=== PATIENT | female | born 1985 | race Caucasian/White ===

== ENCOUNTER 2016-09-15 15:25 | Emergency (ER) | payer BC ==
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
[~2016-09-15 15:25] MED LIST: BIRTH CONTROL PILL PO; COMBIVENT INH14.7 GM INH; LORTAB 7.5-5001 TAB PO; MICROGESTIN FE1 EACH PO; OMEPRAZOLE40 M1 PO; PHENERGAN PO; PHENERGAN PR; PRILOSEC20 M1 PO; PROAIR HFA8.5 GM INH; PROTONIX PO; VICODIN 5/500 T1 TAB PO
== END 2016-09-15 16:33 | disposition home or self-care (01) ==
LOC: SED 15:25
DX: S63.502A Unspecified sprain of left wrist, initial encounter (principal); Z88.0 Allergy status to penicillin; Z88.1 Allergy status to other antibiotic agents; Z91.040 Latex allergy status; W18.30XA Fall on same level, unspecified, initial encounter; Y92.89 Other specified places as the place of occurrence of the external cause
CPT/HCPCS: 29125; 73110; 99283

== ENCOUNTER → 2017-01-10 | Outpatient (CLI) | payer OTHER ==
--- NOTE | ~2017-01-10 | NM22 ---
[facility] A Service of [facility] RADIOLOGY TEXT RESULTS PATIENT: JUAN PHOENIX LOCATION: [facility] : 89 UNIT #: [id number] AGE: [address]: Mark Elliott MD SEX: F ORDER DR: [id number] [facility] [address] [place], [place] [address] [id number] O MR#: [id number] Acc #: [id number] NAME: JUAN PHOENIX : 1985 SEX: F STUDY DATE/TIME: 01/10/2017 12:43 UNIT: [facility] ROOM: STUDY DESCRIPTION: [place] Hepatobiliary W GB Pharm Attending Physician: Mark Elliott M.D. Referring Physician: Mark Elliott M.D. Ordering Physician: Mark Elliott M.D. Primary Care Physician: Evgeny Maxwell M.D. MEDICAL IMAGING REPORT This report is preliminary unless electronic signature is present EXAM HIDA scan with Kinevac CCK 01/10/2017 HISTORY Right upper quadrant abdominal pain after meals with nausea beginning 12/13/2016 FINDINGS The patient received an intravenous injection of 5.85 mCi of technetium 99m tagged Choletec for hepatobiliary imaging. One hour following the injection of the radiopharmaceutical the patient received an intravenous injection 1.7 mcg of Kinevac. There is homogeneous distribution of the radiotracer throughout the liver. Gallbladder activity was seen by 30 minutes postinjection of the radiopharmaceutical. Following Kinevac injection the gallbladder ejection fraction was 92.6% (normal is greater than 30%). IMPRESSION Normal HIDA scan with gallbladder ejection fraction of 92.6%. Dictated by... Michel Roberts M.D. THIS IS AN ELECTRONICALLY VERIFIED REPORT Michel Roberts M.D. at 01/11/2017 8:38 AM DEMIAN/kristin TD: 01/10/2017 15:17 JOB #: [id number] MEDICAL IMAGING REPORT Page 1 of 1 COPY
== END | disposition home or self-care (01) ==
LOC: CNUC 11:36
DX: R10.13 Epigastric pain (principal)
CPT/HCPCS: 78227; A9537; J2805